=== PATIENT | male | born 1960 | race Caucasian/White ===

== ENCOUNTER 2017-06-26 10:17 | Emergency (ER) | payer MEDICARE, OTHER ==
[~2017-06-26] VITALS: Ht 157.5 cm; Wt 130.2 kg
[~2017-06-26 10:17] MED LIST: AMLODIPINE BESYL5 MG PO; ATORVASTATIN CA40 MG PO; COREG25 MG PO; GLYBURIDE 2.52.5 M1 PO; LASIX 80 MG TAB80 MG PO; LEVEMIR SUBQ; METFORMIN HCL500 M2 PO; NOVOLOG100 UNIT/1 SUBQ; PRAVACHOL40 MG PO; PRINIVIL10 MG PO; VITAMIN D400 UNI1 PO
[2017-06-26 11:43] LABS: ABSOLUTE BASOPHILS 0.1 thou/uL (0.0-0.2); ABSOLUTE EOSINOPHILS 0.3 thou/uL (0.0-0.7); ABSOLUTE LYMPHOCYTES 0.9 thou/uL (0.8-5.3); ABSOLUTE MONOCYTES 0.3 thou/uL (0.0-1.2); ABSOLUTE NEUTROPHILS 3.3 thou/uL (1.6-8.1); BASOPHILS 2.3 %; EOSINOPHILS 5.4 %; HEMATOCRIT 35.3 % (42.0-52.0); HEMOGLOBIN 11.9 gm/dL (14.0-18.0); LYMPHOCYTES 18.2 %; MCH 31.3 pg (26.0-34.0); MCHC 33.8 g/dL (28.0-37.0); MCV 92.7 fL (80.0-100.0); MPV 8.4 fl. (7.2-11.1); NUCLEATED RBCS 0 /100WBC; PLATELET COUNT* 211 thou/uL (150-400); POLYS 67.1 %; RBC 3.81 mil/uL (4.50-6.00); RDW-CV 14.6 % (10.5-14.5)
[2017-06-26 11:55] LABS: ANION GAP 7 mmol/L (7-16); BUN 15 mg/dL (7-18); CALCIUM 8.9 mg/dL (8.5-10.1); CHLORIDE 94 mmol/L (98-107); CO2 33 mmol/L (21-32); CREATININE 5.2 mg/dL (0.6-1.3); GLUCOSE 419 mg/dL (70-99); POTASSIUM 3.3 mmol/L (3.5-5.1); SODIUM 134 mmol/L (136-145)
[2017-06-26 12:06] LABS: ALBUMIN 3.1 g/dL (3.4-5.0); ALKALINE PHOSPHATASE 86 U/L (46-116); NT-PRO BRAIN NAT PEPTIDE 30649 pg/mL (<300); TOTAL BILIRUBIN 0.4 mg/dL (<0.1-1.0); TOTAL PROTEIN 7.5 g/dL (6.4-8.2); TROPONIN-I LEVEL <0.06 ng/mL (<0.06)
[2017-06-26 12:30] LABS: SGOT 12 U/L (15-37); SGPT 20 U/L (30-65)
[2017-06-26 12:55] VITALS: BP 157/81
--- NOTE | 2017-06-27 13:27 | EKG ---
[place] [address] ELECTROCARDIOGRAM REPORT Name: EHSAN HARRELL Room: [facility]#: [id number] Admission: 06/26/17 Attend Phys: Discharge: 06/26/17 Date of : 58 Report #: [id number] THIS REPORT FOR: //name// [facility] ED Test Date: 2017-06-26 Test Time: 11:14:46 Pat Name: EHSAN SHARRI Department: Room: Gender: M Apartment House Manager: RUBEN RUELAS : 1960 Requested By: Belkys Silveira Order Number: [id number] MD: Maurice Bethea Measurements Intervals [place] Rate: 106 P: 75 VA: 176 QRS: -13 QRSD: 115 T: 132 QT: 380 QTc: 505 Interpretive Statements Sinus tachycardia LVH with IVCD and secondary repol abnrm Anterior ST elevation, probably due to LVH Prolonged QT interval Baseline wander in lead(s) V3 Compared to ECG 04/17/2015 10:21:55 Intraventricular conduction delay now present Left ventricular hypertrophy now present Early repolarization now present ST (T wave) deviation now present Prolonged QT interval now present Sinus rhythm no longer present T-wave abnormality no longer present Electronically Signed On 06-27-2017 13:27:08 CDT by Maurice Bethea [email or web address] <ELECTRONICALLY SIGNED> By: Rita Bethea MD, [facility] 06/27/17 1327 1114 1114 Rita Bethea MD, [facility] /EPI
== END 2017-06-26 12:55 | disposition home or self-care (01) ==
LOC: M.ERS 10:17
PROVIDERS: Personal Emergency Response Attendant
DX: J06.9 Acute upper respiratory infection, unspecified (principal); E11.22 Type 2 diabetes mellitus with diabetic chronic kidney disease; N18.6 End stage renal disease; E11.65 Type 2 diabetes mellitus with hyperglycemia; F17.210 Nicotine dependence, cigarettes, uncomplicated; Z99.2 Dependence on renal dialysis; Z90.49 Acquired absence of other specified parts of digestive tract; Z88.5 Allergy status to narcotic agent